=== PATIENT | male | born 1990 | race African-American/Black ===

== ENCOUNTER 2022-12-19 02:01 | Emergency (ER) | payer SELFPAY ==
[~2022-12-19] VITALS: Ht 170.2 cm; Wt 59.0 kg
[2022-12-19 02:26] VITALS: BP 107/73; TEMP 98.2; O2SAT 97
== END 2022-12-19 03:01 | disposition left against medical advice (07) ==
LOC: ER 02:04
DX: F10.239 Alcohol dependence with withdrawal, unspecified (principal); F17.200 Nicotine dependence, unspecified, uncomplicated